=== PATIENT | female | born 1955 | race Caucasian/White ===

== ENCOUNTER → 2024-05-14 15:35 | Outpatient (REF) | payer OTHER, SELFPAY | LOC: HWRAD 15:35 | PROVIDERS: ATTENDING PHYSICIAN Nurse Practitioner Primary Care | DX: M54.2 Cervicalgia (principal) | CPT/HCPCS: 72052 ==

== ENCOUNTER → 2024-08-04 14:09 | Outpatient (REF) | payer OTHER, SELFPAY | LOC: HWRAD 14:09 | PROVIDERS: ATTENDING PHYSICIAN Nurse Practitioner Primary Care | DX: R17 Unspecified jaundice (principal) | CPT/HCPCS: 76700 ==

== ENCOUNTER → 2025-06-01 09:31 | Outpatient (REF) | payer MEDICARE, SELFPAY ==
[2025-06-01 10:50] LABS: Hematocrit 37.8 % (37.0-47.0); Hemoglobin 12.0 g/dL (12.0-16.0); Mean Corp Hgb Conc. 31.7 g/dL (33.0-37.0); Mean Corpuscular Volume 91.1 fL (81.0-99.0); Nucleated Red Blood Cells % 0 %; Platelet Count 287 10^3/uL (130-400); Red Cell Dist. Width 12.5 % (11.5-14.5)
[2025-06-01 11:26] LABS: ALT (SGPT) 25 U/L (0-35); AST (SGOT) 33 U/L (14-36); Albumin 4.7 g/dl (3.5-5.0); Alkaline Phosphatase 60 U/L (38-126); Blood Urea Nitrogen 11 mg/dl (7-17); Calcium 9.6 mg/dl (8.4-10.2); Carbon Dioxide 30 mmol/L (22-30); Chloride 101 mmol/L (98-107); Glucose 117 mg/dl (70-99); HDL Cholesterol 87 mg/dl; Iron 78 ug/dl (37-170); LDL Cholesterol, Calculated 95 mg/dl; Magnesium 2.3 mg/dl (1.6-2.3); Potassium 4.1 mmol/L (3.5-5.1); Sodium 140 mmol/L (135-145); Total Protein 7.5 g/dl (6.3-8.2); Very Low Density Lipoprotein 8 mg/dl (0-30); eGFR > 60.00
[2025-06-01 11:35] LABS: Total Iron Binding Capacity 330 ug/dl (265-497)
[2025-06-01 11:53] LABS: Vitamin D, 25-OH*** 31.8 ng/mL (30-80)
[2025-06-01 12:10] LABS: Ferritin 42.5 ng/ml (11.1-264.0)
[2025-06-01 12:42] LABS: Folate 9.0 ng/ml (2.76-20); Vitamin B12 260 pg/ml (239-931)
== END ==
LOC: REG 09:31
PROVIDERS: ATTENDING PHYSICIAN Nurse Practitioner Primary Care
DX: Z00.00 Encounter for general adult medical examination without abnormal findings (principal); E78.2 Mixed hyperlipidemia; I49.3 Ventricular premature depolarization; K21.9 Gastro-esophageal reflux disease without esophagitis; E55.9 Vitamin D deficiency, unspecified; R17 Unspecified jaundice; Z79.899 Other long term (current) drug therapy
CPT/HCPCS: 36415; 80053; 80061; 82248; 82306; 82607; 82728; 82746; 83540; 83550; 83735; 84443; 85025

== ENCOUNTER → 2025-06-04 12:42 | Outpatient (REF) | payer MEDICARE, SELFPAY | LOC: RAD 12:42 | PROVIDERS: ATTENDING PHYSICIAN Nurse Practitioner Primary Care | DX: Z00.00 Encounter for general adult medical examination without abnormal findings (principal); E78.2 Mixed hyperlipidemia; R10.31 Right lower quadrant pain | CPT/HCPCS: 74177; Q9967 ==